=== PATIENT | female | born 1975 | race Caucasian/White ===

== ENCOUNTER 2020-05-08 20:34 | Inpatient (IN) | payer MEDICARE, SELFPAY ==
[2020-05-08] MEDS ORDERED: diphenhydrAMINE 50MG/ML VIAL (J1200) IM ONE (21:00)
[2020-05-08] MEDS ORDERED: LORazepam 1 MG TAB PO PRN (23:45)
[2020-05-08] MEDS ORDERED: MAALOX 30 ML SUSP *UDC PO PRN (23:45)
[2020-05-09 01:14] VITALS: BP 137/78
[2020-05-09] MEDS ORDERED: INFLUENZA QUADRIVALENT PF VACCINE 0.5ML SYRINGE IM ONE (09:00)
--- NOTE | 2020-05-09 10:50 | MHHPEPDOC ---
General Date Of Admission: May 08, 2020 Legal Status: 9.39 Chief Complaint "I'm in crisis and I couldn't handle it anymore" History of Present Illness HISTORY OF THE PRESENT ILLNESS: Per ED report: Pt states, "I was being transferred because I'm in crisis." Pt initially was transported to [facility] by police after she was found wandering down the highway with her cat in a snow storm. When police asked if she needed help, pt was unable to respond appropriately and exhibiting bizarre behavior. Pt reports a long hx Schizophrenia and PTSD. States she has been hospitalized to numerous(out of state)hospitals over the past few years. Last hospitalized to [facility], Feb 2020 for psychosis, but has not taken medication since discharge. States she moved here from [place] on 04/22/20 due to it being too expensive, however did not have a place to live therefore contacted, "[place] [facility]" who was placed her in a hotel. During interview at [facility], she was requesting hospitalization due to not sleeping or eating well and felt she was decompensating. Pt currently denies SI and HI to TW. She admit suffering from AH, denies command. VH are described as "seeing people random people in color who are coming after her" which is frightening. She is currently not in any outpt tx at this time. Accordint to [facility] documentation, pt was highly manic and she appeared to be decompensating from Schizophrenia Patient is a 44 -year-old , , undomiciled, white female, who reports that she is going through multiple psychosocial stressors recently. She reports she lost her job due to Covid then lost her apartment and moved in with a friend in [facility]. She states that she didn't want to live with the friend anymore because he got a girlfriend and that "it just got weird" so she became homeless and was put up in a hotel ([employer]) paid for by a program known as "[facility]" in [facility]. She reports no outpatient mental health treatment or follow up since around February or January 2020. She reported that prior to her admission, she had left her hotel room because, with no plans to return because she felt like someone was poisoning her food when she wasn't there because she was having diarrhea. She reported that this made her feel scared and unsafe so she asked the front end developer designer for a room change but they wouldn't do it because she reports they didn't have anymore pet friendly rooms so she said, "I have to get out of here." She reports that she had tried reaching out to her egg caser and that he "didn't say much," so she thinks her egg caser may be involved with the food poisoning, as they are paying for the hotel room and believes he may have access to her room. She also states that the vending machines on her floor had been empty since she moved in but then were restocked with powerade. She thinks someone was playing a "prank" on her because they know she has had diarrhea and no money to buy the drinks. When she left the hotel, she had her cat in the carrier and wasn't sure where she as going to go but reports that the police stopped her and brought he to [facility]. At the [facility], patient reports she was going to be transferred to [facility] and that before she left she was given "four pills" of Risperdal, unknown dosage, and that on the way to [facility] she states she had a "dystonic reaction" so the ambulance brought her to [facility] instead. She reports feeling highly anxious, with +ah of voices, non command. She also reports +vh of colors on people, "almost like an aura, I don't know it's weird." She denies any suicidal or homicidal thoughts. Psychiatric Review of Systems Depression (2 or more weeks): depressed mood, insomnia/hypersomnia (reports difficulties staying asleep - was getting about 6 hours of sleep), decreased energy, difficulty concentrating, appetite changes (related to paranoia about the food) Elisa (4 or more days of): irritable/elevated mood Psychosis: auditory hallucination (reports currently hearing voices, but always hears voices even when she was on medicatoins - states medications keep the v oices lower ), visual hallucination (reports seeing colors on people,"I've had that for years." She reports that some medicatons help that ), delusions, paranoia, disorganization PTSD: history of trauma, nightmares and flashbacks, intrusive memories, avoidance of triggers, mood fluctuations Anxiety: situational anxiety Anxiety/ 6 months or more of: restlessness, keyed up, difficulty concentrating, muscle tension ("a little bit.), sleep disturbance ("a little bit." ) Past Psychiatric History Previous Psychiatric Diagnosis: schizoaffective disorder PTSD Previous Psychiatric Admissions: Patient reports history of multiple admissions, mainly in [place], [place] She reports that she was last admitted to a psychiatric facility in January or February 2020 Suicide Attempts: reports last suicide attempt was in 2017. She reports she was going to jump off a bridge after ending a relationship and went to get help. Psychiatric Follow-up: denies. Psychiatric medications: "a lot." Patient reports mostly she has been on latuda, invega, prolixin and vraylar. S he reported she felt the most stable on vraylar. She reports she doesn't like taking long acting injectable, as they are "too risky." Past Medical History Medical Problems medical endometriosis she reports since 07/2019 she has had a change in bowel habits and has been having pain and weight loss - states, "I need a colonoscopy to rule out colon cancer" surgeries wrist surgery in 2013 hospitalizations denies Head Injury: No Seizures: No Hospitalizations: Yes (multiple psychiatric admissions) Surgeries: No Family Medical/Psychiatric HX Medical Problems medical - dad - A-fib psychiatric " a lot of abuse in my family so I kind of stay away from them." - does not really answer questions. She does state that both of her parents are narcissistic substance abuse both paternal and maternal grandfathers are alcoholics, both suicide/suicide attempts "I'm not sure." Psychiatric Disorders: No Addiction: No Suicide Attemps/Completions: No Addiction History denies Social History Childhood: Patient reports she was born and raised in [place], [place] - states her parents when she was younger, has 1 full sister, 2 half sisters, and 2 stepbrothers but they were never close growing up. She states that both of her parents were narcissistic and didn't want them to get along so would "pit us apart." She states she graduated high school in 1995 and then got her associate's degree in business administration in 2018. She reported that she lost her job due to the pandemic. She states she was in the ticket to work program for [employer] so lost her disability as well. After she lost her job, she moved out of [facility] and stayed with a friend yovany [facility]. She report that didn't work out so she contacted an organization, who put her in a hotel in the [facility]. 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 She stated that she had recently been established with him since April. Legal: "a while back" arrests, but no convictions Marital: for "quite a few years." Mental Status Examination General Appearance: disheveled, appears stated age Build: average Demeanor: guarded, very figety Eye Contact: average, fair Activity: anxious (tapping foot throughout the interview) Behavior: cooperative, restless Speech: clear, spontaneous, normal volume, reg/rate,rhythm,volume Mood: anxious, irritable Affect: other (blunted) Thought Process: other (paranoid) Thought Content (Delusions): persecutory, paranoia, delusions Thought Content (Other): guarded, appears paranoid Thought Content (Aggressive): none reported Perception (Hallucinations): auditory (reports +ah of voices), visual (reports +vh of seeing people's aura) Perception (Other): none reported Cognition (Impairment of): ability to abstract Cognition(Intelligence Est.): average Oriented: Awake, Alert, Oriented times three Insight: fair Judgment: Poor Psychosis: Abstract Thinking, Psychotic Perceptions Diagnoses schizophrenia bipolar disorder PTSD A-FIB/CHADSVASC A-FIB History Current/History of A-Fib/PAF?: No Current PO Anticoag Therapy: No Assessment Desiree is a 44 year old , undomiciled, ,disabled white female who pres ented to the ED with police after she was found walking in a snow storm with her cat. She stated that she was going to leave her hotel because she thought people were poisoning her food when she left the hotel, as she was having diarrhea. In today's session, Desiree id disheveled, dressed in hospital clothing, appears anxious. She is restless, tapping foot and is fidgety throughout the interview. She is somewhat guarded, not forthcoming with information, but will give more details when asked more specific questions. She reports she has been diagnosed with schizophrenia, bipolar disorder and PTSD. She reports a history of multiple inpatient admissions, mostly in [place], [place]. Currently she is not established with any outpatient psychiatrists and hasn 't had any treatment since the fall of 2019. Today, she denies suicidal thoughts, reports the last time she attempted suicide was in 2017 after a break up. She does admit to +ah of voices and +vh of colors around people and auras. She reports that she has always had +ah and +vh even while taking medications. Management Plan Start invega 3 mg po qhs Initial Treatment Plan 1. Patient was admitted on a [9.39] status. 2. Complete history was obtained. 3. With patients permission, family will be contacted and database will be expanded. 4. Patients medication regimen will be reviewed and changed accordingly. 5. Patient will be provided with protected environment. 6. Patient will be treated with individual, group, and milieu therapies. 7. Patient will receive supportive psych-education. 8. Discharge planning will commence immediately. 9. Outpatient follow-up treatment will be strongly recommended. 10. The initial treatment plan will focus initially on: * Depression. * Risk for suicide. * ESTIMATED LENGTH OF STAY: 5-7 DAYS. TIME SPENT COUNSELING AND COORDINATING INITIAL CARE: 60 minutes. Vital Signs Vital Signs Date Time Temp Pulse Resp B/P (MAP) Pulse Ox O2 Delivery O2 Flow Rate FiO2 05/09/20 01:14 97.7 101 16 137/78 (97) 96 Room Air Medications No Active Prescriptions or Reported Meds Allergies Coded Allergies: Penicillins (Verified Allergy, Severe, 05/08/20) ampicillin (Verified Allergy, Severe, 05/08/20) amoxicillin (Verified Allergy, Unknown, 05/08/20) LEONIDES MCDONNELL NP May 09, 2020 10:50
[2020-05-09] MEDS: LORazepam 2 MG TAB PO PRN (15:55)
[2020-05-09 16:16] VITALS: BP 132/82
--- NOTE | 2020-05-09 16:57 | HPEPDOC ---
[facility] Medical History & Physical Date of Admission May 08, 2020 Date of Service: May 09, 2020 History and Physical Chief complaint: Who presented to the hospital with History of present illness: Patient is a 44-year-old female with a past medical history of depression and anxiety who was a psych transfer from [facility] to [facility] that started to have an allergic reaction to the risperidone that was given at [facility]. During transport, patient had an allergic reaction and was brought to [facility] emergency room for further evaluation, during her transfer. Upon evaluation, patient had received Benadryl and appeared very anxious. Patient was admitted to the inpatient mental health unit under the care of psychiatry. Hospitalist service was consulted for medical screening evaluation. Patient denies any chest pain, shortness of breath, palpitations, nausea, vom iting, abdominal pain, obstipation, or urinary discomfort. She does report intermittent diarrhea. Patient denies any recent fevers or chills. Reports her weight and appetite have been relatively stable Past Medical History: Depression Anxiety Endometriosis Hx of Colitis Past Surgical History: Right wrist surgery Laparoscopic surgery for endometriosis Allergies: See below Medications: See below Family History: - No history of malignancies Social History: - Denies the use of alcohol, tobacco or illicit drugs - Denies recent travel or sick contacts - Lives alone / - Occupation; patient is currently on SSI Review of Systems: 10 point review of systems complete, all negative otherwise stated in HPI Physical exam: - Vitals: BP [132/82], HR [108], RR [20], Sat [98%RA], Temp [96.8F] - General: Sitting up in chair, No acute distress, AAOx3 - HEENT: NC, AT, PERRLA - CVS: RRR, +S1S2 - Lungs: Fair air entry bilaterally, No appreciable wheezing / rales / rhonchi - Abdomen: Soft, Non-distended, Non-tender - Extremities: No lower extremity edema, No calf tenderness - Neuro: No focal motor or sensory deficit - Skin: No visible rashes Labs: See below Imaging: See below EKG: See below Assessment and Plan: Depression / Anxiety - Patient has been admitted to the inpatient mental health unit under the care of psychiatry - Currently being managed by psychiatry Leukocytosis - Labs reviewed from [facility] - Patient is currently afebrile and hemodynamically stable - UA was negative without any signs of infection - Drug screen was negative - Will hold off on antibiotic therapy Endometriosis - Outpatient follow up with CARDIOLOGY MANAGER Hx of Colitis - Patient reports that she still experiences intermittent diarrhea - Advised outpatient follow-up with gastroenterology for likely colonoscopy DVT prophylaxis - Will c/w early ambulation Female bed maker was present throughout the duration of this history and physical examination Thank you for this consultation; hospitalist service will now sign off, please reconsult as needed Vital Signs Vital Signs Date Time Temp Pulse Resp B/P (MAP) Pulse Ox O2 Delivery O2 Flow Rate FiO2 05/09/20 16:16 96.8 108 20 132/82 (99) 98 Room Air Home Medications No Active Prescriptions or Reported Meds Allergies Coded Allergies: Penicillins (Verified Allergy, Severe, 05/08/20) ampicillin (Verified Allergy, Severe, 05/08/20) amoxicillin (Verified Allergy, Unknown, 05/08/20) KAI CAM MD May 09, 2020 16:57
[2020-05-09] MEDS: PALIPERIDONE 3 MG ER TAB (INVEGA) PO SCH (21:12)
[2020-05-10 06:16] VITALS: BP 114/55
--- NOTE | 2020-05-10 10:44 | MHIPNPDOC ---
[facility] Progress Note Progress Note DATE OF SERVICE: 05/10/20 HISTORY OF THE PRESENT ILLNESS: Per ED report: Pt states, "I was being transferred because I'm in crisis." Pt initially was transported to [facility] by police after she was found wandering down the highway with her cat in a snow storm. When police asked if she needed help, pt was unable to respond appropriately and exhibiting bizarre behavior. Pt reports a long hx Schizophrenia and PTSD. States she has been hospitalized to numerous(out of state)hospitals over the past few years. Last hospitalized to [facility], Feb 2020 for psychosis, but has not taken medication since discharge. States she moved here from [place] on 04/22/20 due to it being too expensive, however did not have a place to live therefore contacted, "[place] [facility]" who was placed her in a hotel. During interview at [facility], she was requesting hospitalization due to not sleeping or eating well and felt she was decompensating. Pt currently denies SI and HI to TW. She admit suffering from AH, denies command. VH are described as "seeing people random people in color who are coming after her" which is frightening. She is currently not in any outpt tx at this time. Accordint to [facility] documentation, pt was highly manic and she appeared to be decompensating from Schizophrenia Patient is a 44 -year-old , , undomiciled, white female, who reports that she is going through multiple psychosocial stressors recently. She reports she lost her job due to Covid then lost her apartment and moved in with a friend in [facility]. She states that she didn't want to live with the friend anymore because he got a girlfriend and that "it just got weird" so she became homeless and was put up in a hotel ([employer]) paid for by a program known as "[facility]" in [facility]. She reports no outpatient mental health treatment or follow up since around February or January 2020. She reported that prior to her admission, she had left her hotel room because, with no plans to return because she felt like someone was poisoning her food when she wasn't there because she was having diarrhea. She reported that this made her feel scared and unsafe so she asked the hotel front desk agent for a room change but they wouldn't do it because she reports they didn't have anymore pet friendly rooms so she said, "I have to get out of here." She reports that she had tried reaching out to her behavioral health case manager and that he "didn't say much," so she thinks her behavioral health case manager may be involved with the food poisoning, as they are paying for the hotel room and believes he may have access to her room. She also states that the vending machines on her floor had been empty since she moved in but then were restocked with powerade. She thinks someone was playing a "prank" on her because they know she has had diarrhea and no money to buy the drinks. When she left the hotel, she had her cat in the carrier and wasn't sure where she as going to go but reports that the police stopped her and brought he to [facility]. At the [facility], patient reports she was going to be transferred to [facility] and that before she left she was given "four pills" of Risperdal, unknown dosage, and that on the way to [facility] she states she had a "dystonic reaction" so the ambulance brought her to [facility] instead. She reports feeling highly anxious, with +ah of voices, non command. She also reports +vh of colors on people, "almost like an aura, I don't know it's weird." She denies any suicidal or homicidal though VITAL SIGNS: See below. CURRENT MEDICATIONS: See below. Mental Status Examination General Appearance: disheveled, appears stated age Build: average Demeanor: guarded, very figety Eye Contact: average, fair Activity: anxious (tapping foot throughout the interview) Behavior: cooperative, restless Speech: clear, spontaneous, normal volume, reg/rate,rhythm,volume Mood: anxious, irritable Affect: other (blunted) Thought Process: other (paranoid) Thought Content (Delusions): persecutory, paranoia, delusions Thought Content (Other): guarded, appears paranoid Thought Content (Aggressive): none reported Perception (Hallucinations): auditory (reports +ah of voices), visual (reports +vh of seeing people's aura) Perception (Other): none reported Cognition(Intelligence Est.): average Oriented: Awake, Alert, Oriented times three Insight: fair Judgment: fair Psychosis: Abstract Thinking, Psychotic Perceptions DIAGNOSES: schizophrenia bipolar disorder PTSD ASSESSMENT: Desiree is receptive to the interview, she initially appears anxious, legs are restess appared more at ease as the interview progressed. She is disheveled, dressed in hospital clothing, pleasant, cooperative, polite, easy to engage in interview, eye contact fair, avoidant at times. Patient reports, "I feel a little bit better. There is a little bit of happiness that I haven't felt since years ago, like nothing bad will happen." She reports that the last time she felt happy was a few years ago but that today she feels is optimistic, ready to "start a new chapter." In today's session, she reports hearing voices, "it's just jibber jabber, nothing really." She denies having any suicidal thoughts. She reports she doesn't want to take the invega sustena, and would rather have a pill because she reports that in July, she had a dystonic reaction, where "the back of my neck got really stiff and the way that I see the room was weird, I get anxious, my throat starts blowing up." Patient states she is working on getting an apartment instead of living in a hotel, and that a landlord she has been talking to has one open 05/13/20, that she is hopeful to get. She is future oriented, states she she plans on working on housing and medicaid applications today, as she brought them with her. When asked if she still felt people were poisoning her in her room, she reports "I never know with them, its always a frat green party." She states that there is a "conglomeration" of men in [facility] who like to harrass women who have been in the . MANAGEMENT PLAN: Continue invega 3 mg po qhs TIME SPENT: 25 minutes. Vital Signs Vital Signs Date Time Temp Pulse Resp B/P (MAP) Pulse Ox O2 Delivery O2 Flow Rate FiO2 05/10/20 06:16 98.1 69 16 114/55 (74) 96 Room Air Current Medications Current Medications Medications (Trade) Dose Ordered Sig/Jayashree Route PRN Reason Start Time Stop Time Status Last Admin Dose Admin Acetaminophen (Tylenol Tab) 650 mg Q6HP PRN PO HEADACHE or DISCOMFORT 05/08/20 23:45 Al Hydrox/Mg Hydrox/Simethicone (Mylanta) 30 ml Q4HP PRN PO HEARTBURN/INDIGESTION 05/08/20 23:45 Benztropine Mesylate (Cogentin) 0.5 mg BIDP PRN PO EPS 05/10/20 08:45 Home Med (Med Rec Complete!) ASDIRECTED XX 05/08/20 23:00 05/08/20 23:07 DC Lorazepam (Ativan) 2 mg Q6HP PRN PO ANXIETY 05/08/20 23:45 05/09/20 10:30 DC Lorazepam (Ativan) 2 mg Q6HP PRN PO ANXIETY 05/09/20 10:30 05/09/20 15:55 Magnesium Hydroxide (Milk Of Magnesia) 30 ml DAILYPRN PRN PO CONSTIPATION 05/08/20 23:45 Olanzapine (ZyPREXA) 5 mg Q6HP PRN PO AGITATION 05/08/20 23:45 Paliperidone (Invega) 3 mg QHS PO 05/09/20 21:00 05/09/20 21:12 Trazodone HCl (Desyrel) 50 mg QHSP PRN PO INSOMNIA 05/08/20 23:45 Allergies Coded Allergies: Penicillins (Verified Allergy, Severe, 05/08/20) ampicillin (Verified Allergy, Severe, 05/08/20) amoxicillin (Verified Allergy, Unknown, 05/08/20) LEONIDES MCDONNELL NP May 10, 2020 10:44
[2020-05-10] MEDS: OLANZapine 5 MG TAB PO PRN (15:27)
[2020-05-10 19:25] VITALS: BP 138/68
[2020-05-10] MEDS: PALIPERIDONE 3 MG ER TAB (INVEGA) PO SCH (20:05)
[2020-05-10] MEDS: traZODone 50 MG TAB PO PRN (20:05)
[2020-05-10] MEDS: LORazepam 2 MG TAB PO PRN (20:06)
[2020-05-11 06:39] VITALS: BP 143/54
--- NOTE | 2020-05-11 16:16 | MHIPNPDOC ---
[facility] Progress Note Progress Note DATE OF SERVICE: 05/11/20-------PATIENT WAS SEEN VIA ZOOM DUE TO CORONAVIRUS PANDEMIC Per ED report: Pt states, "I was being transferred because I'm in crisis." Pt initially was transported to [facility] by police after she was found wandering down the highway with her cat in a snow storm. When police asked if she needed help, pt was unable to respond appropriately and exhibiting bizarre behavior. Pt reports a long hx Schizophrenia and PTSD. States she has been hospitalized to numerous(out of state)hospitals over the past few years. Last hospitalized to [facility], Feb 2020 for psychosis, but has not taken medication since discharge. [facility] she moved here from [place] on 04/22/20 due to it being too expensive, however did not have a place to live therefore contacted, "[place] [facility]" who was placed her in a hotel. During interview at [facility], she was requesting hospitalization due to not sleeping or eating well and felt she was decompensating. Pt currently denies SI and HI to TW. She admit suffering from AH, denies command. VH are described as "seeing people random people in color who are coming after her" which is frightening. She is currently not in any outpt tx at this time. Accordint to [facility] documentation, pt was highly manic and she appeared to be decompensating from Schizophrenia Patient is a 44 -year-old , , undomiciled, white female, who reports that she is going through multiple psychosocial stressors recently. She reports she lost her job due to Covid then lost her apartment and moved in with a friend in [facility]. She states that she didn't want to live with the friend anymore because he got a girlfriend and that "it just got weird" so she became homeless and was put up in a hotel ([employer]) paid for by a program known as "[facility]" in [facility]. She reports no outpatient mental health treatment or follow up since around February or January 2020. She reported that prior to her admission, she had left her hotel room because, with no plans to return because she felt like someone was poisoning her food when she wasn't there because she was having diarrhea. She reported that this made her feel scared and unsafe so she asked the front office manager for a room change but they wouldn't do it because she reports they didn't have anymore pet friendly rooms so she said, "I have to get out of here." She reports that she had tried reaching out to her medical case worker and that he "didn't say much," so she thinks her medical case worker may be involved with the food poisoning, as they are paying for the hotel room and believes he may have access to her room. She also states that the vending machines on her floor had been empty since she moved in but then were restocked with powerade. She thinks someone was playing a "prank" on her because they know she has had diarrhea and no money to buy the drinks. When she left the hotel, she had her cat in the carrier and wasn't sure where she as going to go but reports that the police stopped her and brought he to [facility]. At the [facility], patient reports she was going to be transferred to [facility] and that before she left she was given "four pills" of Risperdal, unknown dosage, and that on the way to [facility] she states she had a "dystonic reaction" so the ambulance brought her to [facility] instead. She reports feeling highly anxious, with +ah of voices, non command. She also reports +vh of colors on people, "almost like an aura, I don't know it's weird." She denies any suicidal or homicidal though VITAL SIGNS: See below. CURRENT MEDICATIONS: See below. Mental Status Examination General Appearance: disheveled, appears stated age Build: average Demeanor: guarded, fidgety Eye Contact: average, fair Activity: guarded, anxious Behavior: cooperative, fidgety Speech: clear, spontaneous, normal volume, reg/rate,rhythm,volume Mood: "kind of depressed" (10/19) and she reports feeling anxious too ( 08/19) Affect: constricted Thought Process: other (paranoid) Thought Content (Delusions): persecutory, paranoia, delusions Thought Content (Other): guarded, appears paranoid Thought Content (Aggressive): none reported Perception (Hallucinations): she is forthcoming about having auditory hallucinations but vague bout visual hallucinations. Her auditory hallucinations are not commanding in nature at this time Perception (Other): none reported Cognition(Intelligence Est.): average Oriented: Awake, Alert, Oriented times three Insight: limited Judgment: limited Psychosis: Abstract Thinking, Psychotic Perceptions DIAGNOSES: schizophrenia bipolar disorder PTSD ASSESSMENT: The patient was cooperative but she was paranoid regarding her medications. Feels like Invega Sustenna has given her a bad reaction in the past and she says she doesn't want to have that injection. She says she told someone at [facility] about this and feels like this person is "wickedly evil because is trying to damage by ordering this injection". Once I explained that I understand nobody is trying to damage her by giving her the wrong medications, she seemed to calm down for a moment and then she betty: "Why are you trying to push the PAGAN on people? Is it like this for everybody?" This medical writer explained why we prefer to use PAGAN on people who have psychiatric illnesses. The patient is paranoid and reports auditory hallucinations and doesn't deny not confirm visual hallucinations. Her insight and judgment are impaired because of her paranoid thoughts. I have discussed with her provider changing medications and she agreed to try Abilify so that she can receive Abilify Mantenna MANAGEMENT PLAN: Discontinue invega 3 mg po qhs Start Abilify 5 mgs PO QHS If she tolerates Abilify PO she would be able to receive her PAGAN (Abilify Mantenna) next week TIME SPENT: 25 minutes. Vital Signs Vital Signs Date Time Temp Pulse Resp B/P (MAP) Pulse Ox O2 Delivery O2 Flow Rate FiO2 05/11/20 06:39 98.1 76 14 143/54 (83) 97 Room Air Current Medications Current Medications Medications (Trade) Dose Ordered Sig/Jayashree Route PRN Reason Start Time Stop Time Status Last Admin Dose Admin Acetaminophen (Tylenol Tab) 650 mg Q6HP PRN PO HEADACHE or DISCOMFORT 05/08/20 23:45 Al Hydrox/Mg Hydrox/Simethicone (Mylanta) 30 ml Q4HP PRN PO HEARTBURN/INDIGESTION 05/08/20 23:45 Benztropine Mesylate (Cogentin) 0.5 mg BIDP PRN PO EPS 05/10/20 08:45 Home Med (Med Rec Complete!) ASDIRECTED XX 05/08/20 23:00 05/08/20 23:07 DC Lorazepam (Ativan) 2 mg Q6HP PRN PO ANXIETY 05/08/20 23:45 05/09/20 10:30 DC Lorazepam (Ativan) 2 mg Q6HP PRN PO ANXIETY 05/09/20 10:30 05/10/20 20:06 Magnesium Hydroxide (Milk Of Magnesia) 30 ml DAILYPRN PRN PO CONSTIPATION 05/08/20 23:45 Olanzapine (ZyPREXA) 5 mg Q6HP PRN PO AGITATION 05/08/20 23:45 05/10/20 15:27 Paliperidone (Invega) 3 mg QHS PO 05/09/20 21:00 05/10/20 20:05 Trazodone HCl (Desyrel) 50 mg QHSP PRN PO INSOMNIA 05/08/20 23:45 05/10/20 20:05 Allergies Coded Allergies: Penicillins (Verified Allergy, Severe, 05/08/20) ampicillin (Verified Allergy, Severe, 05/08/20) amoxicillin (Verified Allergy, Unknown, 05/08/20) YOUSIF CAMPO MD May 11, 2020 15:18
[2020-05-11 18:01] VITALS: BP 141/92
[2020-05-11] MEDS: MOM 30ML SUSPENSION UDC PO PRN (18:02)
[2020-05-11] MEDS: LORazepam 2 MG TAB PO PRN (19:41)
[2020-05-11] MEDS: traZODone 50 MG TAB PO PRN (19:41)
[2020-05-12 06:21] VITALS: BP 138/76
--- NOTE | 2020-05-12 14:46 | MHIPNPDOC ---
[facility] Progress Note Progress Note DATE OF SERVICE: 05/12/20-------PATIENT WAS SEEN VIA ZOOM DUE TO CORONAVIRUS PANDEMIC Per ED report: Pt states, "I was being transferred because I'm in crisis." Pt initially was transported to [facility] by police after she was found wandering down the highway with her cat in a snow storm. When police asked if she needed help, pt was unable to respond appropriately and exhibiting bizarre behavior. Pt reports a long hx Schizophrenia and PTSD. States she has been hospitalized to numerous(out of state)hospitals over the past few years. Last hospitalized to [facility], Feb 2020 for psychosis, but has not taken medication since discharge. [facility] she moved here from [place] on 04/22/20 due to it being too expensive, however did not have a place to live therefore contacted, "[place] [facility]" who was placed her in a hotel. During interview at [facility], she was requesting hospitalization due to not sleeping or eating well and felt she was decompensating. Pt currently denies SI and HI to TW. She admit suffering from AH, denies command. VH are described as "seeing people random people in color who are coming after her" which is frightening. She is currently not in any outpt tx at this time. Accordint to [facility] documentation, pt was highly manic and she appeared to be decompensating from Schizophrenia Patient is a 44 -year-old , , undomiciled, white female, who reports that she is going through multiple psychosocial stressors recently. She reports she lost her job due to Covid then lost her apartment and moved in with a friend in [facility]. She states that she didn't want to live with the friend anymore because he got a girlfriend and that "it just got weird" so she became homeless and was put up in a hotel ([employer]) paid for by a program known as "[facility]" in [facility]. She reports no outpatient mental health treatment or follow up since around February or January 2020. She reported that prior to her admission, she had left her hotel room because, with no plans to return because she felt like someone was poisoning her food when she wasn't there because she was having diarrhea. She reported that this made her feel scared and unsafe so she asked the credit front office developer for a room change but they wouldn't do it because she reports they didn't have anymore pet friendly rooms so she said, "I have to get out of here." She reports that she had tried reaching out to her briefcase sewer and that he "didn't say much," so she thinks her briefcase sewer may be involved with the food poisoning, as they are paying for the hotel room and believes he may have access to her room. She also states that the vending machines on her floor had been empty since she moved in but then were restocked with powerade. She thinks someone was playing a "prank" on her because they know she has had diarrhea and no money to buy the drinks. When she left the hotel, she had her cat in the carrier and wasn't sure where she as going to go but reports that the police stopped her and brought he to [facility]. At the [facility], patient reports she was going to be transferred to [facility] and that before she left she was given "four pills" of Risperdal, unknown dosage, and that on the way to [facility] she states she had a "dystonic reaction" so the ambulance brought her to [facility] instead. She reports feeling highly anxious, with +ah of voices, non command. She also reports +vh of colors on people, "almost like an aura, I don't know it's weird." She denies any suicidal or homicidal though VITAL SIGNS: See below. CURRENT MEDICATIONS: See below. Mental Status Examination General Appearance: disheveled, appears stated age Build: average Demeanor: cooperative, she is pleasant Eye Contact: average, fair Activity: calm, cooperative Behavior: cooperative, fidgety Speech: clear, spontaneous, normal volume, reg/rate,rhythm,volume Mood: " a little bit depressed" Affect: constricted Thought Process: other (paranoid) Thought Content (Delusions): persecutory, paranoia, delusions Thought Content (Other): guarded, appears paranoid Thought Content (Aggressive): none reported Perception (Hallucinations): she is forthcoming about having auditory hallucinations but vague bout visual hallucinations. Her auditory hallucinations are not commanding in nature at this time Perception (Other): none reported Cognition(Intelligence Est.): average Oriented: Awake, Alert, Oriented times three Insight: limited Judgment: limited Psychosis: Abstract Thinking, Psychotic Perceptions DIAGNOSES: schizophrenia bipolar disorder PTSD ASSESSMENT: The patient didn't want to meet with me this morning because she said she was depressed but her Nurse informs me that she is not engaging during the morning hours, she just wants to be in her room until she feels like she is ready to go, that is usually in the afternoon and then she becomes very active. When I was able to speak with her, she said that she feels very depressed, she has realized her friends are not really her friends, they have failed her. She has lost her job, has lost her apartment, she fears her dad will . She says the pandemic has made everything more difficult for her, she prays that there will be a better day one day. She says she moved here about 3 weeks ago, she has been living at a hotel in [place] because her Kennel Keeper has placed her there. Regarding her medications, she says she took Effexor a couple of years ago when she felt anxious. She says she has found that Latuda, Zyprexa and Risperdal have worked. Reports that Perphenazine works, Vraylar works ( she says she has taken low doses of Vrayalar s for a couple of years) MANAGEMENT PLAN: Discontinue invega 3 mg po qhs Increase Abilify to 5 mgs PO BID If she tolerates Abilify PO she would be able to receive her PAGAN (Abilify Mantenna) next week TIME SPENT: 25 minutes. Vital Signs Vital Signs Date Time Temp Pulse Resp B/P (MAP) Pulse Ox O2 Delivery O2 Flow Rate FiO2 05/12/20 06:21 97.5 76 16 138/76 (96) 96 Room Air Current Medications Current Medications Medications (Trade) Dose Ordered Sig/Jayashree Route PRN Reason Start Time Stop Time Status Last Admin Dose Admin Acetaminophen (Tylenol Tab) 650 mg Q6HP PRN PO HEADACHE or DISCOMFORT 05/08/20 23:45 Al Hydrox/Mg Hydrox/Simethicone (Mylanta) 30 ml Q4HP PRN PO HEARTBURN/INDIGESTION 05/08/20 23:45 Aripiprazole (AbiLIFY) 5 mg QHS PO 05/11/20 21:00 05/11/20 19:41 Benztropine Mesylate (Cogentin) 0.5 mg BIDP PRN PO EPS 05/10/20 08:45 Home Med (Med Rec Complete!) ASDIRECTED XX 05/08/20 23:00 05/08/20 23:07 DC Lorazepam (Ativan) 2 mg Q6HP PRN PO ANXIETY 05/08/20 23:45 05/09/20 10:30 DC Lorazepam (Ativan) 2 mg Q6HP PRN PO ANXIETY 05/09/20 10:30 05/11/20 19:41 Magnesium Hydroxide (Milk Of Magnesia) 30 ml DAILYPRN PRN PO CONSTIPATION 05/08/20 23:45 05/11/20 18:02 Olanzapine (ZyPREXA) 5 mg Q6HP PRN PO AGITATION 05/08/20 23:45 05/10/20 15:27 Paliperidone (Invega) 3 mg QHS PO 05/09/20 21:00 05/11/20 16:28 DC 05/10/20 20:05 Trazodone HCl (Desyrel) 50 mg QHSP PRN PO INSOMNIA 05/08/20 23:45 05/11/20 19:41 Allergies Coded Allergies: Penicillins (Verified Allergy, Severe, 05/08/20) ampicillin (Verified Allergy, Severe, 05/08/20) amoxicillin (Verified Allergy, Unknown, 05/08/20) YOUSIF CAMPO MD May 12, 2020 12:38
[2020-05-12] MEDS: traZODone 50 MG TAB PO PRN (20:12)
[2020-05-12] MEDS: OLANZapine 5 MG TAB PO PRN (20:41)
[2020-05-13 07:04] VITALS: BP 142/92
[2020-05-13] MEDS ORDERED: PALIPERIDONE PALMITATE 234MG/1.5ML INJ (INVEGA)(FREE PSY INPT ONLY) IM ONE (09:00)
--- NOTE | 2020-05-13 14:18 | MHIPNPDOC ---
[facility] Progress Note Progress Note DATE OF SERVICE: 05/13/20 er ED report: Pt states, "I was being transferred because I'm in crisis." Pt initially was transported to [facility] by police after she was found wandering down the highway with her cat in a snow storm. When police asked if she needed help, pt was unable to respond appropriately and exhibiting bizarre behavior. Pt reports a long hx Schizophrenia and PTSD. States she has been hospitalized to numerous(out of state)hospitals over the past few years. Last hospitalized to [facility], Feb 2020 for psychosis, but has not taken medication since discharge. States she moved here from [place] on 04/22/20 due to it being too expensive, however did not have a place to live therefore contacted, "[place] [facility]" who was placed her in a hotel. During interview at [facility], she was requesting hospitalization due to not sleeping or eating well and felt she was decompensating. Pt currently denies SI and HI to TW. She admit suffering from AH, denies command. VH are described as "seeing people random people in color who are coming after her" which is frightening. She is currently not in any outpt tx at this time. Accordint to [facility] documentation, pt was highly manic and she appeared to be decompensating from Schizophrenia Patient is a 44 -year-old , , undomiciled, white female, who reports that she is going through multiple psychosocial stressors recently. She reports she lost her job due to Covid then lost her apartment and moved in with a friend in [facility]. She states that she didn't want to live with the friend anymore because he got a girlfriend and that "it just got weird" so she became homeless and was put up in a hotel ([employer]) paid for by a program known as "[facility]" in [facility]. She reports no outpatient mental health treatment or follow up since around February or January 2020. She reported that prior to her admission, she had left her hotel room because, with no plans to return because she felt like someone was poisoning her food when she wasn't there because she was having diarrhea. She reported that this made her feel scared and unsafe so she asked the assistant front end manager for a room change but they wouldn't do it because she reports they didn't have anymore pet friendly rooms so she said, "I have to get out of here." She reports that she had tried reaching out to her case loader operator and that he "didn't say much," so she thinks her case loader operator may be involved with the food poisoning, as they are paying for the hotel room and believes he may have access to her room. She also states that the vending machines on her floor had been empty since she moved in but then were restocked with powerade. She thinks someone was playing a "prank" on her because they know she has had diarrhea and no money to buy the drinks. When she left the hotel, she had her cat in the carrier and wasn't sure where she as going to go but reports that the police stopped her and brought he to [facility]. At the [facility], patient reports she was going to be transferred to [facility] and that before she left she was given "four pills" of Risperdal, unknown dosage, and that on the way to [facility] she states she had a "dystonic reaction" so the ambulance brought her to [facility] instead. She reports feeling highly anxious, with +ah of voices, non command. She also reports +vh of colors on people, "almost like an aura, I don't know it's weird." She denies any suicidal or homicidal though VITAL SIGNS: See below. CURRENT MEDICATIONS: See below. Mental Status Examination General Appearance: disheveled, appears stated age Build: average Demeanor: cooperative, she is pleasant Eye Contact: average, fair Activity: calm, cooperative Behavior: cooperative, fidgety Speech: clear, spontaneous, normal volume, reg/rate,rhythm,volume Mood: " I'm feeling better" Affect: constricted Thought Process: other (paranoid) Thought Content (Delusions): persecutory, paranoia, delusions Thought Content (Other): guarded, appears paranoid Thought Content (Aggressive): none reported Perception (Hallucinations): denies ah/vh Perception (Other): none reported Cognition(Intelligence Est.): average Oriented: Awake, Alert, Oriented times three Insight: limited Judgment: limited Psychosis: Abstract Thinking, Psychotic Perceptions DIAGNOSES: schizophrenia bipolar disorder PTSD ASSESSMENT: Initially attempted to meet with patient in her room and patient was significantly paranoid. Asked her about events leading to admission and if she was outside walking with her cat and patient accused this loan underwriter was threatening her and was not receptive. Later patient was agreeable to meet, reports her weekend was good. She states that she feels a lot more supported, like I could talk to people about things and that with the isolation I was experiencing had made everything worse. She denies ah, states the olanzapine prn has been helpful for the voices. She denies vh as well. Desiree reports that she doesnt feel like people are after her as much and when asked if she feels depressed, she states I feel a little but not too bad. She denies any suicidal thoughts as well. She reports that she would like discharge soon, as her cat is being boarded and it costs over $16 per day. She reports that she would go back to [place] to her hotel room and that the reason she left in the first place was because she was having diarrhea and believed someone was poisoning her food so she became scared and was planning on finding a neighbors house. She reported while she was walking, it became late and cold and that the enamel finisher found her, one of which was acting very sinister and that he knew things about her, such as people she knew and states she doesnt know how he knew these things, as she has no arrest record. She reports, its a possibility that the enamel finisher were poisoning her food because she used to date a endoscopic technician and that enamel finisher try to cover for each other and that the police station was located behind her hotel. She states she has spoken to her case loader operator, who states she has her apartment until 05/21 and that she is looking for another apartment and other agencies to help her. She states she has a disability check coming and wants to buy her own food so she knows it is safe. She is agreeable to the PAGAN of monet and is going to try and see if she can move from [facility] to [facility] [place], as she feels there are more supports. She remains significantly paranoid at this time. She then approached this loan underwriter multiple times, is intrusive, states that she w ants to be discharged today as she only has her apartment until 05/21/20. She states that after that she will be homeless and has to find emergency housing [facility], so wants discharge today. It was explained that she would not be discharged today and Marco Antonio, her case loader operator states that she will not be homeless after 05/21 and that he will find her other housing, just needs to know about th ree days before she discharges so he can make plans for her housing. MANAGEMENT PLAN: Continue all medications Plan for monet samano TIME SPENT: 25 minutes. Vital Signs Vital Signs Date Time Temp Pulse Resp B/P (MAP) Pulse Ox O2 Delivery O2 Flow Rate FiO2 05/13/20 07:04 97.7 108 18 142/92 (109) 100 Room Air Current Medications Current Medications Medications (Trade) Dose Ordered Sig/Jayashree Route PRN Reason Start Time Stop Time Status Last Admin Dose Admin Acetaminophen (Tylenol Tab) 650 mg Q6HP PRN PO HEADACHE or DISCOMFORT 05/08/20 23:45 Al Hydrox/Mg Hydrox/Simethicone (Mylanta) 30 ml Q4HP PRN PO HEARTBURN/INDIGESTION 05/08/20 23:45 Aripiprazole (AbiLIFY) 5 mg BID PO 05/12/20 09:00 05/13/20 09:05 Aripiprazole (AbiLIFY) 5 mg QHS PO 05/11/20 21:00 05/12/20 14:48 DC 05/11/20 19:41 Benztropine Mesylate (Cogentin) 0.5 mg BIDP PRN PO EPS 05/10/20 08:45 Home Med (Med Rec Complete!) ASDIRECTED XX 05/08/20 23:00 05/08/20 23:07 DC Lorazepam (Ativan) 2 mg Q6HP PRN PO ANXIETY 05/08/20 23:45 05/09/20 10:30 DC Lorazepam (Ativan) 2 mg Q6HP PRN PO ANXIETY 05/09/20 10:30 05/11/20 19:41 Magnesium Hydroxide (Milk Of Magnesia) 30 ml DAILYPRN PRN PO CONSTIPATION 05/08/20 23:45 05/11/20 18:02 Olanzapine (ZyPREXA) 5 mg Q6HP PRN PO AGITATION 05/08/20 23:45 05/12/20 20:41 Paliperidone (Invega) 3 mg QHS PO 05/09/20 21:00 05/11/20 16:28 DC 05/10/20 20:05 Trazodone HCl (Desyrel) 50 mg QHSP PRN PO INSOMNIA 05/08/20 23:45 05/12/20 20:12 Allergies Coded Allergies: Penicillins (Verified Allergy, Severe, 05/08/20) ampicillin (Verified Allergy, Severe, 05/08/20) amoxicillin (Verified Allergy, Unknown, 05/08/20) LEONIDES MCDONNELL NP May 13, 2020 14:14
[2020-05-13 16:00] VITALS: BP 138/79
[2020-05-13] MEDS: OLANZapine 5 MG TAB PO PRN (17:19)
[2020-05-13] MEDS: traZODone 50 MG TAB PO PRN (21:03)
[2020-05-14 06:14] VITALS: BP 129/90
[2020-05-14] MEDS: OLANZapine 5 MG TAB PO PRN (12:22)
[2020-05-14] MEDS: ACETAMINOPHEN TAB 650MG DOSE (2X325MG) PO PRN (14:27)
--- NOTE | 2020-05-14 14:31 | MHIPNPDOC ---
[facility] Progress Note Progress Note DATE OF SERVICE: 05/14/20 er ED report: Pt states, "I was being transferred because I'm in crisis." Pt initially was transported to [facility] by police after she was found wandering down the highway with her cat in a snow storm. When police asked if she needed help, pt was unable to respond appropriately and exhibiting bizarre behavior. Pt reports a long hx Schizophrenia and PTSD. States she has been hospitalized to numerous(out of state)hospitals over the past few years. Last hospitalized to [facility], Feb 2020 for psychosis, but has not taken medication since discharge. States she moved here from [place] on 04/22/20 due to it being too expensive, however did not have a place to live therefore contacted, "[place] [facility]" who was placed her in a hotel. During interview at [facility], she was requesting hospitalization due to not sleeping or eating well and felt she was decompensating. Pt currently denies SI and HI to TW. She admit suffering from AH, denies command. VH are described as "seeing people random people in color who are coming after her" which is frightening. She is currently not in any outpt tx at this time. Accordint to [facility] documentation, pt was highly manic and she appeared to be decompensating from Schizophrenia Patient is a 44 -year-old , , undomiciled, white female, who reports that she is going through multiple psychosocial stressors recently. She reports she lost her job due to Covid then lost her apartment and moved in with a friend in [facility]. She states that she didn't want to live with the friend anymore because he got a girlfriend and that "it just got weird" so she became homeless and was put up in a hotel ([employer]) paid for by a program known as "[facility] [facility]" in [facility]. She reports no outpatient mental health treatment or follow up since around February or January 2020. She reported that prior to her admission, she had left her hotel room because, with no plans to return because she felt like someone was poisoning her food when she wasn't there because she was having diarrhea. She reported that this made her feel scared and unsafe so she asked the motel front desk clerk for a room change but they wouldn't do it because she reports they didn't have anymore pet friendly rooms so she said, "I have to get out of here." She reports that she had tried reaching out to her rehabilitation caseworker and that he "didn't say much," so she thinks her rehabilitation caseworker may be involved with the food poisoning, as they are paying for the hotel room and believes he may have access to her room. She also states that the vending machines on her floor had been empty since she moved in but then were restocked with powerade. She thinks someone was playing a "prank" on her because they know she has had diarrhea and no money to buy the drinks. When she left the hotel, she had her cat in the carrier and wasn't sure where she as going to go but reports that the police stopped her and brought he to [facility]. At the [facility], patient reports she was going to be transferred to [facility] and that before she left she was given "four pills" of Risperdal, unknown dosage, and that on the way to [facility] she states she had a "dystonic reaction" so the ambulance brought her to [facility] instead. She reports feeling highly anxious, with +ah of voices, non command. She also reports +vh of colors on people, "almost like an aura, I don't know it's weird." She denies any suicidal or homicidal though VITAL SIGNS: See below. CURRENT MEDICATIONS: See below. Mental Status Examination General Appearance: disheveled, appears stated age Build: average Demeanor: cooperative, she is pleasant Eye Contact: average, fair Activity: calm, cooperative Behavior: cooperative, fidgety Speech: clear, spontaneous, normal volume, reg/rate,rhythm,volume Mood: " I'm feeling better" Affect: constricted Thought Process: other (paranoid) Thought Content (Delusions): persecutory, paranoia, delusions Thought Content (Other): guarded, appears paranoid Thought Content (Aggressive): none reported Perception (Hallucinations): denies ah/vh Perception (Other): none reported Cognition(Intelligence Est.): average Oriented: Awake, Alert, Oriented times three Insight: limited Judgment: limited Psychosis: Abstract Thinking, Psychotic Perceptions DIAGNOSES: schizophrenia bipolar disorder PTSD Assessment: During today's session, patient is laying in bed, complaining of a tension headache. She is hard to engage in meaningful conversation due to her headache. She does deny si/hi/ah/vh at this time, denies wanting to discuss anything else at this time. Per staff, today patient has been displaying manic like symptoms and is easily irritable. She denies feeling depressed to this bond writer but does report depression to assigned staff. Will follow up tomorrow Management plan Continue all medications will schedule for patient to recieve monet benitesmercedes 05/16/20 as patient is agreeable to PAGAN Time spent: 25 minutes Vital Signs Vital Signs Date Time Temp Pulse Resp B/P (MAP) Pulse Ox O2 Delivery O2 Flow Rate FiO2 05/14/20 06:14 98.1 83 16 129/90 (103) 96 Room Air Current Medications Current Medications Medications (Trade) Dose Ordered Sig/Jayashree Route PRN Reason Start Time Stop Time Status Last Admin Dose Admin Acetaminophen (Tylenol Tab) 650 mg Q6HP PRN PO HEADACHE or DISCOMFORT 05/08/20 23:45 Al Hydrox/Mg Hydrox/Simethicone (Mylanta) 30 ml Q4HP PRN PO HEARTBURN/INDIGESTION 05/08/20 23:45 Aripiprazole (AbiLIFY) 5 mg BID PO 05/12/20 09:00 05/14/20 08:38 Aripiprazole (AbiLIFY) 5 mg QHS PO 05/11/20 21:00 05/12/20 14:48 DC 05/11/20 19:41 Benztropine Mesylate (Cogentin) 0.5 mg BIDP PRN PO EPS 05/10/20 08:45 Home Med (Med Rec Complete!) ASDIRECTED XX 05/08/20 23:00 05/08/20 23:07 DC Lorazepam (Ativan) 2 mg Q6HP PRN PO ANXIETY 05/08/20 23:45 05/09/20 10:30 DC Lorazepam (Ativan) 2 mg Q6HP PRN PO ANXIETY 05/09/20 10:30 05/11/20 19:41 Magnesium Hydroxide (Milk Of Magnesia) 30 ml DAILYPRN PRN PO CONSTIPATION 05/08/20 23:45 05/11/20 18:02 Olanzapine (ZyPREXA) 5 mg Q6HP PRN PO AGITATION 05/08/20 23:45 05/14/20 12:22 Paliperidone (Invega) 3 mg QHS PO 05/09/20 21:00 05/11/20 16:28 DC 05/10/20 20:05 Trazodone HCl (Desyrel) 50 mg QHSP PRN PO INSOMNIA 05/08/20 23:45 05/13/20 21:03 Allergies Coded Allergies: Penicillins (Verified Allergy, Severe, 05/08/20) ampicillin (Verified Allergy, Severe, 05/08/20) amoxicillin (Verified Allergy, Unknown, 05/08/20) LEONIDES MCDONNELL NP May 14, 2020 14:31
[2020-05-14 16:13] VITALS: BP 129/83
[2020-05-14] MEDS: traZODone 50 MG TAB PO PRN (20:21)
[2020-05-14] MEDS: LORazepam 2 MG TAB PO PRN (21:43)
[2020-05-15 07:08] VITALS: BP 121/67
[2020-05-15] MEDS ORDERED: ARIPiprazole MONOHYDRATE 400 MG INJ (ABILIFY) IM ONE (13:00)
--- NOTE | 2020-05-15 13:37 | MHIPNPDOC ---
[facility] Progress Note Progress Note DATE OF SERVICE: 05/15/20 Per ED report: Pt states, "I was being transferred because I'm in crisis." Pt initially was transported to [facility] by police after she was found wandering down the highway with her cat in a snow storm. When police asked if she needed help, pt was unable to respond appropriately and exhibiting bizarre behavior. Pt reports a long hx Schizophrenia and PTSD. States she has been hospitalized to numerous(out of state)hospitals over the past few years. Last hospitalized to [facility], Feb 2020 for psychosis, but has not taken medication since discharge. States she moved here from [place] on 04/22/20 due to it being too expensive, however did not have a place to live therefore contacted, "[place] [facility]" who was placed her in a hotel. During interview at [facility], she was requesting hospitalization due to not sleeping or eating well and felt she was decompensating. Pt currently denies SI and HI to TW. She admit suffering from AH, denies command. VH are described as "seeing people random people in color who are coming after her" which is frightening. She is currently not in any outpt tx at this time. Accordint to [facility] documentation, pt was highly manic and she appeared to be decompensating from Schizophrenia Patient is a 44 -year-old , , undomiciled, white female, who reports that she is going through multiple psychosocial stressors recently. She reports she lost her job due to Covid then lost her apartment and moved in with a friend in [facility]. She states that she didn't want to live with the friend anymore because he got a girlfriend and that "it just got weird" so she became homeless and was put up in a hotel ([employer]) paid for by a program known as "[employer]" in [facility]. She reports no outpatient mental health treatment or follow up since around February or January 2020. She reported that prior to her admission, she had left her hotel room because, with no plans to return because she felt like someone was poisoning her food when she wasn't there because she was having diarrhea. She reported that this made her feel scared and unsafe so she asked the assistant front end manager for a room change but they wouldn't do it because she reports they didn't have anymore pet friendly rooms so she said, "I have to get out of here." She reports that she had tried reaching out to her skilled nursing case manager and that he "didn't say much," so she thinks her skilled nursing case manager may be involved with the food poisoning, as they are paying for the hotel room and believes he may have access to her room. She also states that the vending machines on her floor had been empty since she moved in but then were restocked with powerade. She thinks someone was playing a "prank" on her because they know she has had diarrhea and no money to buy the drinks. When she left the hotel, she had her cat in the carrier and wasn't sure where she as going to go but reports that the police stopped her and brought he to [facility]. At the [facility], patient reports she was going to be transferred to [facility] and that before she left she was given "four pills" of Risperdal, unknown dosage, and that on the way to [facility] she states she had a "dystonic reaction" so the ambulance brought her to [facility] instead. She reports feeling highly anxious, with +ah of voices, non command. She also reports +vh of colors on people, "almost like an aura, I don't know it's weird." She denies any suicidal or homicidal though VITAL SIGNS: See below. CURRENT MEDICATIONS: See below. Mental Status Examination Desiree is a 44 year old undomiciled, , white female who is agreeable to meet for the interview. She is pleasant, and polite, working on future plans for discharge. General Appearance: disheveled, appears stated age, Build: average Demeanor: cooperative, she is pleasant Eye Contact: average, fair Activity: calm, cooperative Behavior: cooperative, Speech: clear, spontaneous, normal volume, reg/rate,rhythm,volume Mood: " I'm slowly getting over my depression" Affect: constricted Thought Process: other (paranoid) Thought Content (Delusions): somewhat paranoid, improving Thought Content (Other): somewhat paranoid, improving Thought Content (Aggressive): none reported Perception (Hallucinations): denies ah/vh Perception (Other): none reported Cognition(Intelligence Est.): average Oriented: Awake, Alert, Oriented times three Insight: limited Judgment: limited Psychosis: Abstract Thinking, Psychotic Perceptions DIAGNOSES: schizophrenia bipolar disorder PTSD Assessment: In today's session, Desiree is agreeable to meet for the interview, she is polite, calm, and cooperative states she is "feeling good. She is wondering when she will be discharged, as she would like to go soon. She is future oriented, reports that she has been applying for apartments and has multiple organizations that she has been talking to in order to help pay for her apartment. She states that she has spoken to one organization today, who is agreeable to pay for her security deposit. She also states that her skilled nursing case manager, Marco Antonio, from [place] is involved in her care and that she has been keeping him informed of the steps she has taken towards getting an apartment. Patient was initially apprehensive about taking the abilify maintena, reports that she is afraid of having an adverse reactions and that she is scared of needles. However, after discussing the benefits, she becomes agreeable and requests to receive the PAGAN today. She denies ah/vh, states, the olanzapine "is the right thing to take and that it helps to get rid of the voices and takes away her agitation. When asked if she feels paranoid, she states that even if people are after her, she "believes in a higher power, which has more clout than anything else." She states that she feels that she is slowly getting over depression, rates it as a 5/10, denies si/hi, states anxiety is a 2/10. Management plan Continue all medications Patient will receive Abilify Maintena today per her request Potential discharge 05/20/20 Time spent: 25 minutes Vital Signs Vital Signs Date Time Temp Pulse Resp B/P (MAP) Pulse Ox O2 Delivery O2 Flow Rate FiO2 05/15/20 07:08 98.7 51 18 121/67 (85) 97 Room Air Current Medications Current Medications Medications (Trade) Dose Ordered Sig/Jayashree Route PRN Reason Start Time Stop Time Status Last Admin Dose Admin Acetaminophen (Tylenol Tab) 650 mg Q6HP PRN PO HEADACHE or DISCOMFORT 05/08/20 23:45 05/14/20 14:27 Al Hydrox/Mg Hydrox/Simethicone (Mylanta) 30 ml Q4HP PRN PO HEARTBURN/INDIGESTION 05/08/20 23:45 Aripiprazole (AbiLIFY) 5 mg BID PO 05/12/20 09:00 05/15/20 08:10 Aripiprazole (AbiLIFY) 5 mg QHS PO 05/11/20 21:00 05/12/20 14:48 DC 05/11/20 19:41 Benztropine Mesylate (Cogentin) 0.5 mg BIDP PRN PO EPS 05/10/20 08:45 Home Med (Med Rec Complete!) ASDIRECTED XX 05/08/20 23:00 05/08/20 23:07 DC Lorazepam (Ativan) 2 mg Q6HP PRN PO ANXIETY 05/08/20 23:45 05/09/20 10:30 DC Lorazepam (Ativan) 2 mg Q6HP PRN PO ANXIETY 05/09/20 10:30 05/14/20 21:43 Magnesium Hydroxide (Milk Of Magnesia) 30 ml DAILYPRN PRN PO CONSTIPATION 05/08/20 23:45 05/11/20 18:02 Olanzapine (ZyPREXA) 5 mg Q6HP PRN PO AGITATION 05/08/20 23:45 05/14/20 12:22 Paliperidone (Invega) 3 mg QHS PO 05/09/20 21:00 05/11/20 16:28 DC 05/10/20 20:05 Trazodone HCl (Desyrel) 50 mg QHSP PRN PO INSOMNIA 05/08/20 23:45 05/14/20 20:21 Allergies Coded Allergies: Penicillins (Verified Allergy, Severe, 05/08/20) ampicillin (Verified Allergy, Severe, 05/08/20) amoxicillin (Verified Allergy, Unknown, 05/08/20) LEONIDES MCDONNELL NP May 15, 2020 13:37
[2020-05-15 16:28] VITALS: BP 128/78
[2020-05-15] MEDS: BENZTROPINE 0.5 MG TAB PO PRN (17:04)
[2020-05-15] MEDS: traZODone 50 MG TAB PO PRN (20:33)
[2020-05-15] MEDS: MOM 30ML SUSPENSION UDC PO PRN (20:55)
[2020-05-15] MEDS: LORazepam 2 MG TAB PO PRN (21:49)
[2020-05-16 06:10] VITALS: BP 116/56
[2020-05-16] MEDS ORDERED: PALIPERIDONE PALMITATE 156MG/1ML INJ(INVEGA)(FREE PSY INPT ONLY) IM ONE (09:00)
[2020-05-16] MEDS ORDERED: ARIPiprazole MONOHYDRATE 400 MG INJ (ABILIFY) IM ONE (09:00)
--- NOTE | 2020-05-16 12:10 | MHIPNPDOC ---
[facility] Progress Note Progress Note DATE OF SERVICE: 05/16/20 Per ED report: Pt states, "I was being transferred because I'm in crisis." Pt initially was transported to [facility] by police after she was found wandering down the highway with her cat in a snow storm. When police asked if she needed help, pt was unable to respond appropriately and exhibiting bizarre behavior. Pt reports a long hx Schizophrenia and PTSD. States she has been hospitalized to numerous(out of state)hospitals over the past few years. Last hospitalized to [facility], Feb 2020 for psychosis, but has not taken medication since discharge. States she moved here from [place] on 04/22/20 due to it being too expensive, however did not have a place to live therefore contacted, "[place] [facility]" who was placed her in a hotel. During interview at [facility], she was requesting hospitalization due to not sleeping or eating well and felt she was decompensating. Pt currently denies SI and HI to TW. She admit suffering from AH, denies command. VH are described as "seeing people random people in color who are coming after her" which is frightening. She is currently not in any outpt tx at this time. Accordint to [facility] documentation, pt was highly manic and she appeared to be decompensating from Schizophrenia Patient is a 44 -year-old , , undomiciled, white female, who reports that she is going through multiple psychosocial stressors recently. She reports she lost her job due to Covid then lost her apartment and moved in with a friend in [facility]. She states that she didn't want to live with the friend anymore because he got a girlfriend and that "it just got weird" so she became homeless and was put up in a hotel ([place]) paid for by a program known as "[facility]" in [facility]. She reports no outpatient mental health treatment or follow up since around February or January 2020. She reported that prior to her admission, she had left her hotel room because, with no plans to return because she felt like someone was poisoning her food when she wasn't there because she was having diarrhea. She reported that this made her feel scared and unsafe so she asked the waterfront director for a room change but they wouldn't do it because she reports they didn't have anymore pet friendly rooms so she said, "I have to get out of here." She reports that she had tried reaching out to her booth manager and that he "didn't say much," so she thinks her booth manager may be involved with the food poisoning, as they are paying for the hotel room and believes he may have access to her room. She also states that the vending machines on her floor had been empty since she moved in but then were restocked with powerade. She thinks someone was playing a "prank" on her because they know she has had diarrhea and no money to buy the drinks. When she left the hotel, she had her cat in the carrier and wasn't sure where she as going to go but reports that the police stopped her and brought he to [facility]. At the [facility], patient reports she was going to be transferred to [facility] and that before she left she was given "four pills" of Risperdal, unknown dosage, and that on the way to [facility] she states she had a "dystonic reaction" so the ambulance brought her to [facility] instead. She reports feeling highly anxious, with +ah of voices, non command. She also reports +vh of colors on people, "almost like an aura, I don't know it's weird." She denies any suicidal or homicidal though VITAL SIGNS: See below. CURRENT MEDICATIONS: See below. Mental Status Examination Desiree is a 44 year old undomiciled, , white female who is agreeable to meet for the interview. She is pleasant, and polite, working on future plans for discharge. General Appearance: disheveled, appears stated age, Build: average Demeanor: cooperative, she is pleasant Eye Contact: average, fair Activity: calm, cooperative Behavior: cooperative, Speech: clear, spontaneous, normal volume, reg/rate,rhythm,volume Mood: " I'm slowly getting over my depression" Affect: constricted Thought Process: other (paranoid) Thought Content (Delusions): somewhat paranoid, improving Thought Content (Other): somewhat paranoid, improving Thought Content (Aggressive): none reported Perception (Hallucinations): denies ah/vh Perception (Other): none reported Cognition(Intelligence Est.): average Oriented: Awake, Alert, Oriented times three Insight: limited Judgment: limited Psychosis: Abstract Thinking, Psychotic Perceptions DIAGNOSES: schizophrenia, paranoid type bipolar disorder PTSD ASSESSMENT: Patient reports "I'm doing good." She continues to report that her mood has been improving and she feels less depressed, denies si. She is future oriented, states she has been applying to apartment. She reports that she has spoken to her booth manager Marco Antonio, who states he is taking care of her hotel room and that she can go back there after discharge until she finds an apartment. She is still hoping to discharge Wednesday. She did receive abilify Maintena yesterday and discussed with patient that she will need to take 3 week of oral abilify and patient is agreeable. She states she is hoping to discharge with prn zyprexa, as "its a really powerful drug and I really like it." She states zyprexa helps with her anxiety and takes her ah away. She denies vh Management plan Continue all medications Potential discharge 05/20/20 Time spent: 25 minutes Vital Signs Vital Signs Date Time Temp Pulse Resp B/P (MAP) Pulse Ox O2 Delivery O2 Flow Rate FiO2 05/16/20 09:00 Room Air 05/16/20 06:10 98.8 56 14 116/56 (51) 97 Current Medications Current Medications Medications (Trade) Dose Ordered Sig/Jayashree Route PRN Reason Start Time Stop Time Status Last Admin Dose Admin Acetaminophen (Tylenol Tab) 650 mg Q6HP PRN PO HEADACHE or DISCOMFORT 05/08/20 23:45 05/14/20 14:27 Al Hydrox/Mg Hydrox/Simethicone (Mylanta) 30 ml Q4HP PRN PO HEARTBURN/INDIGESTION 05/08/20 23:45 Aripiprazole (AbiLIFY) 5 mg BID PO 05/12/20 09:00 05/16/20 08:53 Aripiprazole (AbiLIFY) 5 mg QHS PO 05/11/20 21:00 05/12/20 14:48 DC 05/11/20 19:41 Benztropine Mesylate (Cogentin) 0.5 mg BIDP PRN PO EPS 05/10/20 08:45 05/15/20 17:04 Home Med (Med Rec Complete!) ASDIRECTED XX 05/08/20 23:00 05/08/20 23:07 DC Lorazepam (Ativan) 2 mg Q6HP PRN PO ANXIETY 05/08/20 23:45 05/09/20 10:30 DC Lorazepam (Ativan) 2 mg Q6HP PRN PO ANXIETY 05/09/20 10:30 05/15/20 21:49 Magnesium Hydroxide (Milk Of Magnesia) 30 ml DAILYPRN PRN PO CONSTIPATION 05/08/20 23:45 05/15/20 20:55 Olanzapine (ZyPREXA) 5 mg Q6HP PRN PO AGITATION 05/08/20 23:45 05/14/20 12:22 Paliperidone (Invega) 3 mg QHS PO 05/09/20 21:00 05/11/20 16:28 DC 05/10/20 20:05 Trazodone HCl (Desyrel) 50 mg QHSP PRN PO INSOMNIA 05/08/20 23:45 05/15/20 20:33 Allergies Coded Allergies: Penicillins (Verified Allergy, Severe, 05/08/20) ampicillin (Verified Allergy, Severe, 05/08/20) amoxicillin (Verified Allergy, Unknown, 05/08/20) LEONIDES MCDONNELL NP May 16, 2020 11:57
[2020-05-16 17:52] VITALS: BP 128/62
[2020-05-16] MEDS: traZODone 50 MG TAB PO PRN (19:59)
[2020-05-16] MEDS: OLANZapine 5 MG TAB PO PRN (20:40)
[2020-05-16] MEDS: LORazepam 2 MG TAB PO PRN (21:35)
[2020-05-17 06:23] VITALS: BP 119/61
[2020-05-17] MEDS: BENZTROPINE 0.5 MG TAB PO PRN (08:30)
--- NOTE | 2020-05-17 12:44 | MHIPNPDOC ---
[facility] Progress Note Progress Note DATE OF SERVICE: 05/17/20 Per ED report: Pt states, "I was being transferred because I'm in crisis." Pt initially was transported to [facility] by police after she was found wandering down the highway with her cat in a snow storm. When police asked if she needed help, pt was unable to respond appropriately and exhibiting bizarre behavior. Pt reports a long hx Schizophrenia and PTSD. States she has been hospitalized to numerous(out of state)hospitals over the past few years. Last hospitalized to [facility], Feb 2020 for psychosis, but has not taken medication since discharge. States she moved here from [place] on 04/22/20 due to it being too expensive, however did not have a place to live therefore contacted, "[place] [facility]" who was placed her in a hotel. During interview at [facility], she was requesting hospitalization due to not sleeping or eating well and felt she was decompensating. Pt currently denies SI and HI to TW. She admit suffering from AH, denies command. VH are described as "seeing people random people in color who are coming after her" which is frightening. She is currently not in any outpt tx at this time. Accordint to [facility] documentation, pt was highly manic and she appeared to be decompensating from Schizophrenia Patient is a 44 -year-old , , undomiciled, white female, who reports that she is going through multiple psychosocial stressors recently. She reports she lost her job due to Covid then lost her apartment and moved in with a friend in [facility]. She states that she didn't want to live with the friend anymore because he got a girlfriend and that "it just got weird" so she became homeless and was put up in a hotel ([employer]) paid for by a program known as "[facility]" in [facility]. She reports no outpatient mental health treatment or follow up since around February or January 2020. She reported that prior to her admission, she had left her hotel room because, with no plans to return because she felt like someone was poisoning her food when she wasn't there because she was having diarrhea. She reported that this made her feel scared and unsafe so she asked the front worker for a room change but they wouldn't do it because she reports they didn't have anymore pet friendly rooms so she said, "I have to get out of here." She reports that she had tried reaching out to her assistant case manager and that he "didn't say much," so she thinks her assistant case manager may be involved with the food poisoning, as they are paying for the hotel room and believes he may have access to her room. She also states that the vending machines on her floor had been empty since she moved in but then were restocked with powerade. She thinks someone was playing a "prank" on her because they know she has had diarrhea and no money to buy the drinks. When she left the hotel, she had her cat in the carrier and wasn't sure where she as going to go but reports that the police stopped her and brought he to [facility]. At the [facility], patient reports she was going to be transferred to [facility] and that before she left she was given "four pills" of Risperdal, unknown dosage, and that on the way to [facility] she states she had a "dystonic reaction" so the ambulance brought her to [facility] instead. She reports feeling highly anxious, with +ah of voices, non command. She also reports +vh of colors on people, "almost like an aura, I don't know it's weird." She denies any suicidal or homicidal though VITAL SIGNS: See below. CURRENT MEDICATIONS: See below. Mental Status Examination Desiree is a 44 year old undomiciled, , white female who is agreeable to meet for the interview. She is pleasant, and polite, working on future plans for discharge. General Appearance: mildly disheveled, appears stated age, Build: average Demeanor: cooperative, she is pleasant Eye Contact: average, fair Activity: calm, cooperative Behavior: cooperative, Speech: clear, spontaneous, normal volume, reg/rate,rhythm,volume, hyperverbal, tangential Mood: euthymic Affect: reactive Thought Process: other (paranoid) Thought Content (Delusions): mildly paranoid, improving Thought Content (Other): somewhat paranoid, improving Thought Content (Aggressive): none reported Perception (Hallucinations): denies ah/vh Perception (Other): none reported Cognition(Intelligence Est.): average Oriented: Awake, Alert, Oriented times three Insight: improving Judgment: improving Psychosis: Abstract Thinking, Psychotic Perceptions DIAGNOSES: schizoaffective disorder, bipolar type PTSD ASSESSMENT: Patient initially did not want to meet this morning, asked to nap longer. Patient found her way to the office. She reports that she is improving. Patient is hyperverbal and tangential, talks about her issues with her last landlord. She believes that he poisoned 1 of 2 cats and she states that she had to bury the cat in [place] because she did not want him buried in [place]. She was very conversant in today's interview. Reporting that she had called the police on her Landlord and feels that because the Landlord was a business owner/operator and was a friend of the mounted police that she spoke to that the of her cat was in retaliation of reporting him for being in her apartment without notifying her first. She then spoke about her relationship with her father "I had a dependence on him, and that's is why I cannot speak to him now, it is not a good relationship. Patient spoke about how the defense attorney warned her that police will not turn on each other. While telling the stories, patient is calm and cooperative and friendly. She denies and is not observed with depression or suicidal/homicidal ideation, planning or intent. She does display a moderate amount of paranoia and appears pleasantly delusional. She is mildly suspicious, anxious and guarded. Patient exhibits mild grandiosity. She is however not observed to be a dangerous person, her insight and judgment is improving. Patient appears to be motivated for discharge on Wednesday. Management plan Continue all medications Potential discharge 05/20/20 Time spent: 25 minutes Vital Signs Vital Signs Date Time Temp Pulse Resp B/P (MAP) Pulse Ox O2 Delivery O2 Flow Rate FiO2 05/17/20 06:23 99.0 64 14 119/61 (80) 96 Room Air Current Medications Current Medications Medications (Trade) Dose Ordered Sig/Jayashree Route PRN Reason Start Time Stop Time Status Last Admin Dose Admin Acetaminophen (Tylenol Tab) 650 mg Q6HP PRN PO HEADACHE or DISCOMFORT 05/08/20 23:45 05/14/20 14:27 Al Hydrox/Mg Hydrox/Simethicone (Mylanta) 30 ml Q4HP PRN PO HEARTBURN/INDIGESTION 05/08/20 23:45 Aripiprazole (AbiLIFY) 5 mg BID PO 05/12/20 09:00 05/17/20 08:30 Aripiprazole (AbiLIFY) 5 mg QHS PO 05/11/20 21:00 05/12/20 14:48 DC 05/11/20 19:41 Benztropine Mesylate (Cogentin) 0.5 mg BIDP PRN PO EPS 05/10/20 08:45 05/17/20 08:30 Home Med (Med Rec Complete!) ASDIRECTED XX 05/08/20 23:00 05/08/20 23:07 DC Lorazepam (Ativan) 2 mg Q6HP PRN PO ANXIETY 05/08/20 23:45 05/09/20 10:30 DC Lorazepam (Ativan) 2 mg Q6HP PRN PO ANXIETY 05/09/20 10:30 05/16/20 21:35 Magnesium Hydroxide (Milk Of Magnesia) 30 ml DAILYPRN PRN PO CONSTIPATION 05/08/20 23:45 05/15/20 20:55 Olanzapine (ZyPREXA) 5 mg Q6HP PRN PO AGITATION 05/08/20 23:45 05/16/20 20:40 Paliperidone (Invega) 3 mg QHS PO 05/09/20 21:00 05/11/20 16:28 DC 05/10/20 20:05 Trazodone HCl (Desyrel) 50 mg QHSP PRN PO INSOMNIA 05/08/20 23:45 05/16/20 19:59 Allergies Coded Allergies: Penicillins (Verified Allergy, Severe, 05/08/20) ampicillin (Verified Allergy, Severe, 05/08/20) amoxicillin (Verified Allergy, Unknown, 05/08/20) LEONIDES MCDONNELL NP May 17, 2020 12:44
[2020-05-17] MEDS: ACETAMINOPHEN TAB 650MG DOSE (2X325MG) PO PRN (14:23)
[2020-05-17 16:58] VITALS: BP 130/75
[2020-05-17] MEDS: traZODone 50 MG TAB PO PRN (20:06)
[2020-05-18 06:10] VITALS: BP 112/72
[2020-05-18 16:31] VITALS: BP 138/68
[2020-05-18] MEDS: BENZTROPINE 0.5 MG TAB PO PRN (19:07)
[2020-05-18] MEDS: MOM 30ML SUSPENSION UDC PO PRN (20:05)
[2020-05-18] MEDS: traZODone 50 MG TAB PO PRN (20:05)
[2020-05-18] MEDS: OLANZapine 5 MG TAB PO PRN (20:59)
[2020-05-18] MEDS: LORazepam 2 MG TAB PO PRN (21:53)
[2020-05-18] MEDS: ACETAMINOPHEN TAB 650MG DOSE (2X325MG) PO PRN (22:56)
[2020-05-19 06:18] VITALS: BP 146/82
[2020-05-19] MEDS: BENZTROPINE 0.5 MG TAB PO PRN (14:54)
[2020-05-19] MEDS: LORazepam 2 MG TAB PO PRN ×2 (14:54→22:44)
[2020-05-19 16:06] VITALS: BP 139/75
[2020-05-19] MEDS: traZODone 50 MG TAB PO PRN (20:10)
[2020-05-19] MEDS: MOM 30ML SUSPENSION UDC PO PRN (20:11)
[2020-05-19] MEDS: ACETAMINOPHEN TAB 650MG DOSE (2X325MG) PO PRN (23:09)
[2020-05-20 06:29] VITALS: BP 112/72
[2020-05-20] MEDS ORDERED: ABIL1TAB11 PO (09:59)
[2020-05-20] MEDS ORDERED: BENZ0.5T23 PO (09:59)
[2020-05-20] MEDS ORDERED: ABIL1INJ2 IM (10:13)
--- NOTE | 2020-05-20 12:48 | MHDSPDOC ---
[facility] Discharge Summary Discharge Summary DATE OF ADMISSION: May 08, 2020 at 23:40 DATE OF DISCHARGE: May 20, 2020 at 1015 DISCHARGE DIAGNOSES: Schizoaffective disorder, bipolar type REASON FOR ADMISSION: Patient is a 44 year old Single, Disabled, Domiciled, Female who was brought to [facility] after she reports a "mental breakdown" She was exhibiting paranoia, auditory hallucinations and stating that she had delusions about people being after her. CONSULTANTS INVOLVED: See Medical H + P by Hospitalist TREATMENT AND PROGRESS ON THE UNIT: Patient was admitted to the [facility] on a legal status he was afforded the following treatment modalities: 1) Individual Therapy 2) Group Therapy 3) Medication Management 4) Milieu Therapy 5) Safe Environment HOSPITAL COURSE: Patient was admitted to [facility] on a and initially was resistive to medications. She was agreeable to Risperdal but no to the long ac ting injectable. She stated that she would take Abilify Maintena 400 mg IM which she took on 05/15/20. Patient had moments where she was restless and very focused on social issues. She made numerous phone calls to agencies reporting that people who worked at [facility] were not mentally stable. Patient did eventually have improved mood and affect. In today's session patient is very engaged and truthful. She states that she became paranoid and suspicious of the motel where she was living, had suspicions that the refrigerator dial was being turned up on her. She had fears that the police were dishonest and so she placed her cat in a pet carrier and left the motel on foot. Today she reports that she is returning to [place]. Feels that she can do ignore her command hallucinations, states that she only had 2 episodes of auditory hallucinations while hospitalized. In today's interview, patient is alert and oriented, pts dress is appropriate. Hygiene and grooming is well-kempt. Smiles on approach and is pleasant and engaged in the interview. Denies depression and anxiety. Denies suicidal and homicidal ideation, planning or intent. He denies and is not observed with eddy, psychotic symptoms of delusions, bizarre thinking, obsessions, paranoia, ruminations illogical thoughts, flight of ideas or having poor insight and judgement. Patient has normal mentation, declines further hospitalization on a voluntary status and meets criteria for discharge today. MENTAL STATUS EXAMINATION ON DISCHARGE: Patient is a 44 -year old female, who is dressed appropriately, alert and oriented, smiles on approach. Conversant and friendly, calm and cooperative in the interview. Speech: Is fluid, conversant, normal rate, tone and volume Language skills are intact Thought processes including: linear and goal oriented Thought content: denies depression and anxiety. Denies suicidal/homicidal ideation, planning or intent. Abstract reasoning, and computation: fair Description of associations: denies, none observed Description of abnormal or psychotic thoughts: denies, none observed. Judgment: fair Insight: fair Orientation: alert and oriented to person, place, time and situation Recent and remote memory: intact Attention span and concentration: good Language: expansive Fund of knowledge: average Mood: Euthymic Mood Affect: reactive MEDICATIONS ON DISCHARGE: See Medication Reconciliation PLAN/FOLLOWUP ARRANGEMENTS: [facility] in [place], [place] The amount of time spent in the coordination of care for this patient was approximately 25 minutes. Vital Signs/I&Os Vital Signs Date Time Temp Pulse Resp B/P (MAP) Pulse Ox O2 Delivery O2 Flow Rate FiO2 05/20/20 06:29 98.5 68 16 112/72 (85) 98 Room Air Medications Scheduled Aripiprazole (Abilify) 5 Mg Tablet, 5 MG PO BID for Antipsychotic/Mood, #14 Aripiprazole (Abilify Maintena) 400 Mg Suser.syr, 400 MG IM Q30D for antipsychotic, #1 Scheduled PRN Benztropine Mesylate (Benztropine Mesylate) 0.5 Mg Tablet, 0.5 MG PO BIDP PRN for EPS, #14 Allergies Coded Allergies: Penicillins (Verified Allergy, Severe, 05/08/20) ampicillin (Verified Allergy, Severe, 05/08/20) amoxicillin (Verified Allergy, Unknown, 05/08/20) LEONIDES MCDONNELL NP May 20, 2020 10:24
== END 2020-05-20 10:55 | disposition home or self-care (01) | DRG 885 ==
LOC: M ED 20:34 → M ED INP 23:40 → M PSY 05-09 01:10
PROVIDERS: ADMIT Psychiatry & Neurology Psychiatry; ATTEND Psychiatry & Neurology Psychiatry
DX: F25.0 Schizoaffective disorder, bipolar type (principal); Z88.0 Allergy status to penicillin